=== PATIENT | female | born 1985 | race Two or more races ===

== ENCOUNTER 2019-05-05 05:45 | Inpatient (IN) | payer OTHER ==
[~2019-05-05] VITALS: Ht 154.9 cm; Wt 63.5 kg
[~2019-05-05 05:45] MED LIST: CEFADROXIL500 MG PO; PEPCID40 MG PO; PHENERGAN25 MG PO
[2019-05-06] MEDS ORDERED: TERCONAZOLE45 GM (08:00)
[2019-05-07] MEDS ORDERED: KETO10TA2 PO (07:42)
[2019-05-07] MEDS ORDERED: OXYC1TAB9 PO (07:43)
== END 2019-05-07 10:11 | disposition home or self-care (01) | DRG 747 ==
LOC: CIR.AMB 05:45 → OB/GYN 10:19 → O/R 10:19 → OB/GYN 10:52
PROVIDERS: ADMIT Obstetrics & Gynecology Maternal & Fetal Medicine
PROC: 0UV Female Reproductive System, Restriction (ICD-10-PCS; principal; 2019-05-05 07:00)
DX: N88.3 Incompetence of cervix uteri (principal)

== ENCOUNTER → 2020-09-04 | Outpatient (CLI) | payer OTHER ==
[~2020-09-04] MED LIST changes: +KETO10TA2 PO; +OXYC1TAB9 PO; +TERCONAZOLE45 GM
== END | disposition home or self-care (01) ==
LOC: NST 21:07
PROVIDERS: ATTEND Obstetrics & Gynecology Maternal & Fetal Medicine
DX: Z34.83 Encounter for supervision of other normal pregnancy, third trimester (principal)

== ENCOUNTER 2020-09-19 12:37 | Outpatient (CLI) | payer OTHER | END 2020-09-19 13:43 | disposition home or self-care (01) | LOC: NST 12:37 | PROVIDERS: ATTEND Obstetrics & Gynecology Maternal & Fetal Medicine | DX: O34.33 Maternal care for cervical incompetence, third trimester (principal) ==

== ENCOUNTER 2020-10-24 10:34 | Outpatient (CLI) | payer OTHER | END 2020-10-24 11:19 | disposition home or self-care (01) | LOC: NST 10:34 | PROVIDERS: ATTEND Obstetrics & Gynecology Maternal & Fetal Medicine | DX: Z34.83 Encounter for supervision of other normal pregnancy, third trimester (principal) ==

== ENCOUNTER 2020-11-01 09:30 | Inpatient (IN) | payer OTHER ==
[~2020-11-01] VITALS: Ht 154.9 cm; Wt 3.2 kg
[2020-11-08] MEDS ORDERED: PRENATAL CAPLE1 EAC1 PO (09:48)
== END 2020-11-10 16:52 | disposition home or self-care (01) | DRG 786 ==
LOC: O/R 11-08 08:56 → SURG-SUITE 11-08 08:56 → SURH 11-08 09:30 → SURG-SUITE 11-08 15:07 → SURH 11-08 18:00 → SURG-SUITE 11-10 16:52
PROVIDERS: ADMIT Obstetrics & Gynecology Maternal & Fetal Medicine; ATTEND Obstetrics & Gynecology Maternal & Fetal Medicine
PROC: 4A1HXFZ Monitoring of Products of Conception, Cardiac Rhythm, External Approach (ICD-10-PCS; 2020-11-08)
PROC: 10D00Z1 Extraction of Products of Conception, Low, Open Approach (ICD-10-PCS; principal; 2020-11-08 18:00)
DX: O65.5 Obstructed labor due to abnormality of maternal pelvic organs (principal); O34.33 Maternal care for cervical incompetence, third trimester; Z3A.38 38 weeks gestation of pregnancy; Z37.0 Single live birth